=== PATIENT | male | born 1995 | race African-American/Black ===

== ENCOUNTER 2016-06-19 17:18 | Emergency (ER) | payer OTHER ==
[2016-06-19 17:22] VITALS: BP 154/74; PULSE 81; TEMP 99.4; BMI 27.1
--- NOTE | 2016-06-19 19:28 | PDOC ---
History of Present Illness - General History Source: Patient Exam Limitations: No Limitations - History of Present Illness Initial Comments: 06/19/16 20:04 The patient is a 21-year-old male with a significant past medical history of GI bleeds (ulcers), who presents to the emergency department complaining of episodes of nausea, vomiting, diarrhea, and fever for the past day. The patient reports he present to [facility] ED earlier today, but left because of the waiting time. He states that he is unable to keep down any solids or fluids secondary to nausea. Today, he reports 5 episodes of nonbloody and nonbilious emesis today. He reports hes had more than 5 episodes of diarrhea today. He denies any associated melena, hematochezia, or constipation. He denies dysuria , frequency, urgency, and hematuria. He denies chills, cough, headache, and dizziness. The patient denies any recent travel or sick contacts. Allergies: None reported. Past Surgical History: None reported. Social History: Recreational Marijuana user. Non-smoker or ETOH consumer. <Estela Sandra - Last Filed: 06/19/16 20:04> <Myrna Severino - Last Filed: 06/19/16 22:39> - General Chief Complaint: Pain, Acute Stated Complaint: VOMITING/STOMACH ACHE Time Seen by Provider: 06/19/16 19:27 Past History <Estela Sandra - Last Filed: 06/19/16 20:04> - Past Medical History GI Disorders: Yes (Ulcers) - Psycho/Social/Smoking Cessation Hx Anxiety: No Suicidal Ideation: No Smoking History: Never smoked Have you smoked in the past 12 months: No Information on smoking cessation initiated: No Hx Alcohol Use: No Drug/Substance Use Hx: Yes (DIANELYS) Substance Use Type: Marijuana <Myrna Severino - Last Filed: 06/19/16 22:39> - Past Medical History Allergies/Adverse Reactions: Allergies Allergy/AdvReac Type Severity Reaction Status Date / Time No Known Allergies Allergy Verified 06/19/16 17:19 Home Medications: Ambulatory Orders NK [No Known Home Medication] 04/12/16 Review of Systems - Review of Systems Able to Perform ROS?: Yes Comments:: 06/19/16 20:05 GENERAL/CONSTITUTIONAL: +Fever. No chills. No weakness. HEAD, EYES, EARS, NOSE AND THROAT: No change in vision. No ear pain or discharge. No sore throat. CARDIOVASCULAR: No chest pain or shortness of breath. RESPIRATORY: No cough, wheezing, or hemoptysis. GASTROINTESTINAL: + Nausea, +vomiting, + diarrhea. No constipation. GENITOURINARY: No dysuria, frequency, or change in urination. MUSCULOSKELETAL: No joint or muscle swelling or pain. No neck or back pain. SKIN: No rash NEUROLOGIC: No headache, vertigo, loss of consciousness, or change in strength/ sensation. ENDOCRINE: No increased thirst. No abnormal weight change. HEMATOLOGIC/LYMPHATIC: No anemia, easy bleeding, or history of blood clots. ALLERGIC/IMMUNOLOGIC: No hives or skin allergy. <Estela Sandra - Last Filed: 06/19/16 20:04> *Physical Exam - Vital Signs Last Vital Signs Temp Pulse Resp BP Pulse Ox 99.4 F 81 18 154/74 100 06/19/16 17:20 06/19/16 17:20 06/19/16 17:20 06/19/16 17:20 06/19/16 17:20 - Physical Exam Comments: 06/19/16 20:05 GENERAL: Awake, alert, and fully oriented, in no acute distress HEAD: No signs of trauma EYES: PERRLA, EOMI, sclera anicteric, conjunctiva clear ENT: Auricles normal inspection, hearing grossly normal, nares patent, oropharynx clear without exudates. Moist mucosa NECK: Normal ROM, supple, no lymphadenopathy, JVD, or masses LUNGS: Breath sounds equal, clear to auscultation bilaterally. No wheezes, and no crackles HEART: Regular rate and rhythm, normal S1 and S2, no murmurs, rubs or gallops ABDOMEN: +Mild LUQ tenderness. Normoactive bowel sounds. No guarding, no rebound. No masses EXTREMITIES: Normal range of motion, no edema. No clubbing or cyanosis. No cords, erythema, or tenderness NEUROLOGICAL: Cranial nerves II through XII grossly intact. Normal speech, normal gait SKIN: Warm, Dry, normal turgor, no rashes or lesions noted. <Estela Sandra - Last Filed: 06/19/16 20:04> - Vital Signs Last Vital Signs Temp Pulse Resp BP Pulse Ox 99.4 F 81 18 154/74 100 06/19/16 17:20 06/19/16 17:20 06/19/16 17:20 06/19/16 17:20 06/19/16 17:20 <Myrna Severino - Last Filed: 06/19/16 22:39> ED Treatment Course - LABORATORY CBC & Chemistry Diagram: 06/19/16 20:16 06/19/16 20:16 <Myrna Severino - Last Filed: 06/19/16 22:39> Medical Decision Making - Medical Decision Making 06/19/16 22:38 pt comes with nausea and vomiting diarrhea and fever. Today he has no fever in the ER and he is feeling better, but he thinks he may have a stomach virus. Exam is normal, labs normal, and pt was hydrated and feeling better. He has no abdominal pain and he is feeling better. He will be discharged home. <Myrna Severino - Last Filed: 06/19/16 22:39> *DC/Admit/Observation/Transfer - Attestations Scribe Attestion: 06/19/16 20:05 Documentation prepared by Estela Sandra, acting as medical instrument technician for Myrna Severino MD. <Estela Sandra - Last Filed: 06/19/16 20:04> - Discharge Dispostion Admit: No <Myrna Severino - Last Filed: 06/19/16 22:39> Diagnosis at time of Disposition: Gastroenteritis - Discharge Dispostion Disposition: HOME Condition at time of disposition: Improved - Referrals Referrals: Juan David Camacho MD [Primary Care Provider] - - Patient Instructions Printed Discharge Instructions: Viral Gastroenteritis - Post Discharge Activity Work/School Note: Back to Work
[2016-06-19] MEDS ORDERED: SODIUM CHLORIDE 0.9% 500 ML INFUS.BAG IV ONE (19:46)
[2016-06-19] MEDS ORDERED: FAMOTIDINE 20 MG/50 ML IVPB 50 ML IVPB ONE ×2 (19:46→20:06)
[2016-06-19] MEDS ORDERED: ONDANSETRON 4 MG/2 ML VIAL IVPB ONE (19:46)
[2016-06-19] MEDS ORDERED: ONDANSETRON 4 MG/2 ML VIAL ONE (20:06)
[2016-06-19 20:25] LABS: BASOPHIL 0.2 % (0-2.0); EOSINOPHIL 0.1 % (0-4.5); MCH 29.3 pg (25.7-33.7); MCHC 32.4 g/dl (32.0-35.9); MEAN CELL VOLUME 90.4 fl (80-96); MEAN PLT VOLUME 8.6 fl (7.5-11.1); PLATELET COUNT 217 K/MM3 (134-434); RDW 13.7 % (11.9-15.9); WHITE BLOOD COUNT 6.5 K/mm3 (4.0-10.0)
[2016-06-19 20:56] LABS: ALK PHOS 57 U/L (45-117); AMYLASE 80 U/L (25-115); ANION GAP 6 (8-16); BILIRUBIN,TOTAL 0.6 mg/dL (0.2-1.0); CALCIUM 10.2 mg/dL (8.5-10.1); CO2 28 mmol/L (21-32); CREATININE 1.2 mg/dL (0.7-1.3); GLUCOSE,RANDOM 86 mg/dL (74-106); SGOT/AST 28 U/L (15-37); SGPT/ALT 68 U/L (12-78); TOT PROT 8.3 g/dl (6.4-8.2)
== END 2016-06-19 21:51 | disposition home or self-care (01) ==
LOC: JER 17:18
PROC: 3E033GC Introduction of Other Therapeutic Substance into Peripheral Vein, Percutaneous Approach (ICD-10-PCS; principal; 2016-06-19)
DX: K52.9 Noninfective gastroenteritis and colitis, unspecified (principal)
CPT/HCPCS: 36415; 80053; 82150; 83690; 85025; 96365; 96375; 99281-25

== ENCOUNTER 2016-07-05 14:05 | Emergency (ER) | payer OTHER ==
[2016-07-05 14:09] VITALS: TEMP 98.1; BMI 27.1
[2016-07-05] MEDS ORDERED: morphine CARPU-JECT 4 MG/1 ML DISP.SYRIN IVPUSH ONE (14:21)
[2016-07-05] MEDS ORDERED: morphine CARPU-JECT 4 MG/1 ML DISP.SYRIN ONE (14:25)
[2016-07-05] MEDS ORDERED: HYDROmorphone HCL CARPU-JECT 1 MG/1 ML DISP.SYRIN IVPB ONE ×2 (14:32→15:13)
--- NOTE | 2016-07-05 14:35 | PDOC ---
History of Present Illness - History of Present Illness Initial Comments: 07/05/16 14:42 The patient is a 21 year old male with history of previous right shoulder dislocation who presents to the ED complaining of right shoulder pain and deformity. The patient reports he was playing basketball today grabbed the rim and pulled and twisted his right shoulder at the onset of his pain. No numbness , tingling, or focal weakness. No head injury. No other injury. <Emiliana Lucio - Last Filed: 07/05/16 15:27> - General History Source: Patient Exam Limitations: No Limitations <Abhi Caban - Last Filed: 07/05/16 16:59> <Rosa Jay - Last Filed: 07/05/16 18:11> - General Chief Complaint: Injury Stated Complaint: DISLOCATED RT SHOULDER Time Seen by Provider: 07/05/16 14:21 Past History <Emiliana Lucio - Last Filed: 07/05/16 15:27> - Past Medical History GI Disorders: Yes (Ulcers) Other medical history: DISLOCATED R SHOULDER. - Psycho/Social/Smoking Cessation Hx Anxiety: No Suicidal Ideation: No Smoking History: Never smoked Have you smoked in the past 12 months: No Hx Alcohol Use: No Drug/Substance Use Hx: No Substance Use Type: Marijuana <Abhi Caban - Last Filed: 07/05/16 16:59> <Rosa Jay - Last Filed: 07/05/16 18:11> - Past Medical History Allergies/Adverse Reactions: Allergies Allergy/AdvReac Type Severity Reaction Status Date / Time No Known Allergies Allergy Verified 07/05/16 14:09 Home Medications: Ambulatory Orders NK [No Known Home Medication] 07/05/16 Naproxen [Naprosyn -] 500 mg PO BID PRN #20 tablet 07/05/16 Oxycodone HCl/Acetaminophen [Percocet 5-325 mg Tablet] 1 tab PO Q6H PRN #15 tablet MDD 4 07/05/16 Review of Systems - Review of Systems Able to Perform ROS?: Yes Comments:: 07/05/16 14:43 GENERAL/CONSTITUTIONAL: No fever or chills. No weakness. HEAD, EYES, EARS, NOSE AND THROAT: No change in vision. No ear pain or discharge. No sore throat. CARDIOVASCULAR: No chest pain or shortness of breath. RESPIRATORY: No cough, wheezing, or hemoptysis. GASTROINTESTINAL: No nausea, vomiting, diarrhea or constipation. GENITOURINARY: No dysuria, frequency, or change in urination. MUSCULOSKELETAL: Right shoulder pain and deformity. No neck or back pain. SKIN: No rash NEUROLOGIC: No headache, vertigo, loss of consciousness, or change in strength/ sensation. ENDOCRINE: No increased thirst. No abnormal weight change. HEMATOLOGIC/LYMPHATIC: No anemia, easy bleeding, or history of blood clots. ALLERGIC/IMMUNOLOGIC: No hives or skin allergy. <Emiliana Lucio - Last Filed: 07/05/16 15:27> *Physical Exam - Vital Signs Last Vital Signs Temp Pulse Resp BP Pulse Ox 98.1 F 99 H 20 149/83 96 07/05/16 14:06 07/05/16 14:06 07/05/16 14:06 07/05/16 14:06 07/05/16 14:06 - Physical Exam Comments: 07/05/16 14:36 GENERAL: Awake, alert, and fully oriented, uncomfortable appearing. HEAD: No signs of trauma EYES: PERRLA, EOMI, sclera anicteric, conjunctiva clear ENT: Auricles normal inspection, hearing grossly normal, nares patent, oropharynx clear without exudates. Moist mucosa NECK: Normal ROM, supple, no lymphadenopathy, JVD, or masses LUNGS: Breath sounds equal, clear to auscultation bilaterally. No wheezes, and no crackles HEART: Regular rate and rhythm, normal S1 and S2, no murmurs, rubs or gallops ABDOMEN: Soft, nontender, normoactive bowel sounds. No guarding, no rebound. No masses EXTREMITIES: RUE: 2+ radial pulses, medial, radian, ulnar, and deltoid intact, anterior dislocation of the shoulder with anterior tenderness to palpation. No tenderness at the fingers, wrist, or elbow. All other extremities: Normal range of motion, no edema. No clubbing or cyanosis. No cords, erythema, or tenderness NEUROLOGICAL: Cranial nerves II through XII grossly intact. Normal speech, normal gait SKIN: Warm, Dry, normal turgor, no rashes or lesions noted. <Emiliana Lucio - Last Filed: 07/05/16 15:27> - Vital Signs Last Vital Signs Temp Pulse Resp BP Pulse Ox 98.1 F 99 H 20 149/83 96 07/05/16 14:06 07/05/16 14:06 07/05/16 14:06 07/05/16 14:06 07/05/16 14:06 <Abhi Caban - Last Filed: 07/05/16 16:59> - Vital Signs Last Vital Signs Temp Pulse Resp BP Pulse Ox 98.1 F 77 18 144/81 98 07/05/16 14:06 07/05/16 17:28 07/05/16 17:28 07/05/16 17:28 07/05/16 17:28 <Rosa Jay - Last Filed: 07/05/16 18:11> Procedures - Consent Consent obtained: Written, From Patient - Joint Reduction Right Joint Reduction Site: right: Shoulder Pre-Procedure NV Exam: normal Conscious Sedation: Yes (100 mg ketamine, 2 mg IV versed. ) Reduction Attempts: 1 Procedure: Traction Counter Traction Post-Procedure NV Exam: normal Complications: No Splint: No Immobilized: Yes Progress: 07/05/16 16:33 Pending a repeat shoulder xray. <Abhi Caban - Last Filed: 07/05/16 16:59> ED Treatment Course - Medications Given in the ED: ED Medications Discontinued Medications Generic Name Dose Route Start Last Admin Trade Name Freq PRN Reason Stop Dose Admin Morphine Sulfate 4 mg 07/05/16 14:21 07/05/16 14:27 Morphine Injection - IVPUSH 07/05/16 14:22 4 mg ONCE ONE Administration <Emiliana Lucio - Last Filed: 07/05/16 15:27> - RADIOLOGY Radiology Studies Ordered: Category Date Time Status SHOULDER-RIGHT [RAD] Stat Radiology 07/05/16 14:22 Ordered - Medications Given in the ED: ED Medications Discontinued Medications Generic Name Dose Route Start Last Admin Trade Name Freq PRN Reason Stop Dose Admin Morphine Sulfate 4 mg 07/05/16 14:21 07/05/16 14:27 Morphine Injection - IVPUSH 07/05/16 14:22 4 mg ONCE ONE Administration <Abhi Caban - Last Filed: 07/05/16 16:59> - Medications Given in the ED: ED Medications Discontinued Medications Generic Name Dose Route Start Last Admin Trade Name Freq PRN Reason Stop Dose Admin Hydromorphone HCl 1 mg 07/05/16 14:32 07/05/16 14:35 Dilaudid Injection - IVPB 07/05/16 14:33 1 mg ONCE ONE Administration Hydromorphone HCl 0.5 mg 07/05/16 15:13 07/05/16 15:25 Dilaudid Injection - IVPB 07/05/16 15:14 0.5 mg ONCE ONE Administration Ketamine HCl 100 mg 07/05/16 15:20 07/05/16 15:45 Ketalar - IV 07/05/16 15:21 100 mg ONCE ONE Administration Midazolam HCl 2 mg 07/05/16 15:20 07/05/16 15:43 Versed - IVPUSH 07/05/16 15:21 2 mg ONCE ONE Administration Morphine Sulfate 4 mg 07/05/16 14:21 07/05/16 14:27 Morphine Injection - IVPUSH 07/05/16 14:22 4 mg ONCE ONE Administration <Rosa Jay - Last Filed: 07/05/16 18:11> Medical Decision Making - Medical Decision Making 07/05/16 15:27 Right shoulder x-ray, reviewed and interpreted by Dr. Nowak, reveals a right humerus anterior dislocation with no evidence of acute fracture. <Emiliana Lucio - Last Filed: 07/05/16 15:27> - Medical Decision Making 07/05/16 14:34 A portion of this note was documented by scribe services under my direction. I have reviewed the details of the note, within reason, and agree with the documentation with the following case summary and management plan written by me. Patient treated in the ED. Nursing notes are reviewed and incorporated into the medical decision-making. Vital signs reviewed. Peripheral IV access obtained by the nurse, laboratory studies are drawn and sent, reviewed and interpreted by myself. Vital Signs Temp Pulse Resp BP Pulse Ox 98.1 F 99 H 20 149/83 96 07/05/16 14:06 07/05/16 14:06 07/05/16 14:06 07/05/16 14:06 07/05/16 14:06 21-year-old male with past medical history of prior shoulder dislocation presents with right shoulder pain. The patient was playing basketball and was going for a rebound and pulled on the rim of the basket when he felt his right shoulder twist and pop. Denies any numbness or weakness. Reports significant pain. We'll need to rule out shoulder dislocation. He is neurovascular intact at this time. X-ray and reassess. Pain control. 07/05/16 16:33 R shoulder xray demonstrates no acute fractures. Shows right anterior shoulder dislocation. After lengthy discussion, the patient agrees to moderate sedation. Risks and benefits were discussed including risk of respiratory depression. Crash cart was placed at bedside and patient placed on air sampling and monitoring and IV, O2. The patient consents for moderate sedation and shoulder reduction. Mallampatti II. With another ED attending presents, Dr. Moore, 100 mg of IV ketamine and 2 g IV Versed were given with excellent moderate sedation. With traction and countertraction, shoulder reduction was attempted once with a palpable click. Patient remains neurovascular intact post seizure. Patient was placed in a right shoulder splint. Friend is at bedside who can take patient home once he awakens. He continues to breathe comfortably without any vital sign on room abnormalities. If the repeat right shoulder x-ray done shows no acute finding is , we'll discharge patient with orthopedics follow-up. 07/05/16 16:51 Repeat shoulder xray on my review, pending official radiology review. Successful reduction of right shoulder. Will allow the patient to wake up and allow him to go home with the friend. <Abhi Caban - Last Filed: 07/05/16 16:59> *DC/Admit/Observation/Transfer - Attestations Scribe Attestion: 07/05/16 14:37 Documentation prepared by Emiliana Lucio, acting as director of medical services for Abhi Caban MD. <Emiliana Lucio - Last Filed: 07/05/16 15:27> - Discharge Dispostion Admit: No <Abhi Caban - Last Filed: 07/05/16 16:59> <Rosa Jay - Last Filed: 07/05/16 18:11> Diagnosis at time of Disposition: Shoulder dislocation Qualifiers: Encounter type: initial encounter Laterality: right Qualified Code(s): S43.004A - Unspecified dislocation of right shoulder joint, initial encounter - Discharge Dispostion Disposition: HOME Condition at time of disposition: Stable - Prescriptions Prescriptions: Naproxen [Naprosyn -] 500 mg PO BID PRN #20 tablet PRN Reason: Pain Level 1-5 Oxycodone HCl/Acetaminophen [Percocet 5-325 mg Tablet] 1 tab PO Q6H PRN #15 tablet MDD 4 PRN Reason: Pain Level 6-10 - Referrals Referrals: Juan David Camacho MD [Primary Care Provider] - Desmond Vidal MD [Staff Physician] - - Patient Instructions Printed Discharge Instructions: DI for Shoulder Dislocation Additional Instructions: Your shoulder was dislocated and a reduction was made. At this time, please keep your shoulder in the sling for the next day. However, from time to time, allow your shoulder to dangle by gravity, to prevent frozen shoulder, and then place the arm in the sling. Do not product picker any heavy objects or engage in physical activity until you are cleared by orthopedics. Call and schedule an appointment for the next several days. You may take 500 mg naproxen every 12 hours as needed for pain. For additional relief, you may take a tablet of percocet every 6 hours as needed for pain. Please do not drink or drive while on this medication as this medication may make you drowsy. [facility].
[2016-07-05] MEDS ORDERED: MIDAZOLAM HCL 2 MG/2 ML SINGLE DOSE VIAL IVPUSH ONE (15:20)
[2016-07-05] MEDS ORDERED: KETAMINE HCL 500 MG/10 ML VIAL IV ONE (15:20)
[2016-07-05] MEDS ORDERED: KETAMINE HCL 200 MG/20 ML VIAL ONE (15:24)
[2016-07-05] MEDS ORDERED: HYDROmorphone HCL CARPU-JECT 1 MG/1 ML DISP.SYRIN ONE (15:24)
[2016-07-05] MEDS ORDERED: MIDAZOLAM HCL 2 MG/2 ML SINGLE DOSE VIAL ONE (15:24)
[2016-07-05 17:28] VITALS: BP 144/81; PULSE 77
== END 2016-07-05 17:50 | disposition home or self-care (01) ==
LOC: JER 14:05
PROC: 0RSJXZZ Reposition Right Shoulder Joint, External Approach (ICD-10-PCS; principal; 2016-07-05)
PROC: 3E033NZ Introduction of Analgesics, Hypnotics, Sedatives into Peripheral Vein, Percutaneous Approach (ICD-10-PCS; 2016-07-05)
DX: M24.411 Recurrent dislocation, right shoulder (principal); X50.1XXA Overexertion from prolonged static or awkward postures, initial encounter; Y93.67 Activity, basketball; Y92.310 Basketball court as the place of occurrence of the external cause; Y99.8 Other external cause status
CPT/HCPCS: 23655; 73030-TC-RT; 96374; 96375; 99283-25

== ENCOUNTER 2017-03-14 22:22 | Emergency (ER) | payer OTHER ==
--- NOTE | 2017-03-14 22:35 | PDOC ---
History of Present Illness - General Stated Complaint: RIGHT KNEE PAIN Time Seen by Provider: 03/14/17 22:27 - History of Present Illness Initial Comments: 21 year old male with PMH of PUD (resolved) and one traumatic knee dislocation 4-5 years ago while playing sports presenting with non traumatic pain in the right knee while lying in bed. He states that he was simply laying in bed and twisted his body to the left then felt some pain in his right knee with inability to flex more than 4-5 degrees. Unable to bear weight secondary to pain as well. Denies any numbness, tingling or parasthesia. He does admit to some marijuana use after work today prior to the incident. 03/14/17 22:37 Past History - Past Medical History Allergies/Adverse Reactions: Allergies Allergy/AdvReac Type Severity Reaction Status Date / Time No Known Allergies Allergy Verified 03/14/17 23:12 Home Medications: Ambulatory Orders NK [No Known Home Medication] 07/05/16 Naproxen [Naprosyn -] 500 mg PO BID PRN #20 tablet 03/15/17 GI Disorders: Yes (Ulcers) - Suicide/Smoking/Psychosocial Hx Smoking History: Never smoked Have you smoked in the past 12 months: No Hx Alcohol Use: No Drug/Substance Use Hx: No Substance Use Type: Marijuana Review of Systems - Review of Systems Constitutional: No: Diaphoresis, Fever HEENTM: No: Double Vision Respiratory: No: Cough, Shortness of Breath Cardiac (ROS): No: Chest Pain, Edema, Irregular Heart Rate ABD/GI: No: Diarrhea, Nausea, Vomiting Musculoskeletal: Yes: Joint Pain Integumentary: No: Bruising, Change in Color, Lesions *Physical Exam - Physical Exam General Appearance: Yes: Nourished, Appropriately Dressed. No: Apparent Distress HEENT: positive: EOMI, DEIDRE, Normal Voice Neck: positive: Trachea midline, Normal Thyroid, Supple. negative: Tender, Rigid Respiratory/Chest: positive: Lungs Clear, Normal Breath Sounds. negative: Chest Tender, Respiratory Distress Cardiovascular: positive: Regular Rhythm, Regular Rate, S1, S2. negative: Edema , JVD, Murmur Gastrointestinal/Abdominal: positive: Normal Bowel Sounds, Flat, Soft. negative : Tender Musculoskeletal: negative: Normal Inspection (Right knee tender to palpation on lateral edge with knee apparently displaced from normal location compared with left knee. unable to flex knee past 4-5 degrees secondayr to pain.) Extremity: positive: Tender. negative: Normal Inspection, Normal Range of Motion Integumentary: positive: Normal Color, Dry, Warm Neurologic: positive: Fully Oriented, Alert, Normal Mood/Affect Medical Decision Making - Medical Decision Making 21 year old male with non traumatic right knee pain. Most concerning for dislocation. Will give patient one percocet get 2 view of right knee, then reduce and shoot post reduction film. 03/14/17 22:46 2 view of the knee does not show obvious dislocation so will apply some ice, place in knee immobilizer, and send for ortho follow up. 03/14/17 23:54 Patient feeling slightly better after 30 toradol IM. 03/15/17 00:27 *DC/Admit/Observation/Transfer Diagnosis at time of Disposition: Right knee pain - Discharge Dispostion Disposition: HOME Condition at time of disposition: Improved Admit: No - Prescriptions Prescriptions: Naproxen [Naprosyn -] 500 mg PO BID PRN #20 tablet PRN Reason: Pain Level 1-5 - Referrals Referrals: Juan David Camacho MD [Primary Care Provider] - Desmond Vidal MD [Staff Physician] - - Patient Instructions Printed Discharge Instructions: How to Use a Knee Immobilizer Additional Instructions: Please wear the knee immobilizer until you are able to see the orthopedic physician. We did not see any break or dislocation on your knee films. Please use the naprosyn for pain.
[2017-03-14 23:37] VITALS: BP 132/62; PULSE 77; TEMP 98.6; BMI 26.4
[2017-03-14] MEDS ORDERED: KETOROLAC TROMETHAMINE 30 MG/1 ML VIAL IM ONE (23:46)
[2017-03-15] MEDS ORDERED: KETOROLAC TROMETHAMINE 60 MG/2 ML VIAL ONE (00:05)
== END 2017-03-15 00:58 | disposition home or self-care (01) ==
LOC: JER 22:22
PROC: 3E0233Z Introduction of Anti-inflammatory into Muscle, Percutaneous Approach (ICD-10-PCS; principal; 2017-03-14)
DX: M25.561 Pain in right knee (principal)
CPT/HCPCS: 73560-TC-RT; 99281-25

== ENCOUNTER 2017-09-14 10:42 | Emergency (ER) | payer OTHER ==
[2017-09-14 10:47] VITALS: BP 125/57; PULSE 62; TEMP 98.5; BMI 23.0
[2017-09-14] MEDS ORDERED: ACETAMINOPHEN 325 MG TABLET (FP) PO ONE (12:21)
[2017-09-14] MEDS ORDERED: ACETAMINOPHEN 325 MG TABLET (FP) ONE (12:23)
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
== END 2017-09-14 13:33 | disposition home or self-care (01) ==
LOC: JERFT 10:42
DX: S43.401A Unspecified sprain of right shoulder joint, initial encounter (principal); V19.88XA Pedal cyclist (driver) (passenger) injured in other specified transport accidents, initial encounter; Y92.410 Unspecified street and highway as the place of occurrence of the external cause; Y93.55 Activity, bike riding; Y99.8 Other external cause status
CPT/HCPCS: 73030-TC-RT-FY; 99281-25

== ENCOUNTER 2018-05-24 21:34 | Emergency (ER) | payer SELFPAY ==
[2018-05-24 21:41] VITALS: BP 134/60; PULSE 79; TEMP 98.2; BMI 25.0
--- NOTE | 2018-05-24 21:43 | PDOC ---
Rapid Medical Evaluation Chief Complaint: Pain, Acute Medical Evaluation: Allergies Allergy/AdvReac Type Severity Reaction Status Date / Time ibuprofen [From Motrin] Allergy Verified 09/14/17 10:46 05/24/18 21:38 I have performed a brief in-person evaluation of this patient. The patient presents with a chief complaint of:abd pain / gastric Pertinent physical exam findings: abd soft/ no rebound or guarding butr is tender in epigastrum I have ordered the following: nothing The patient will proceed to the ED for further evaluation. Discharge Disposition - Diagnosis Stomach ache - Referrals Referrals: Susan Cardona MD [Primary Care Provider] - - Patient Instructions - Post Discharge Activity
[2018-05-25] MEDS ORDERED: MAG HYDROX/AL HYDROX/SIMETH 30 ML UNIT-DOSE CUP PO ONE (00:17)
--- NOTE | 2018-05-25 00:18 | PDOC ---
History of Present Illness - History of Present Illness Initial Comments: 05/25/18 00:33 The patient is a 23 year old male, with a significant past medical history of, who presents to the emergency department for evaluation of diarrhea all day with associated epigastric discomfort and nausea. He denies vomiting. He brett pain radiation. He reports a sick family contact with similar symptoms. Cramping , The patient denies chest pain, shortness of breath, headache and dizziness. The patient denies fever, chills, vomit, and constipation. The patient denies dysuria, frequency, urgency and hematuria. Allergies: ibuprofen, NSAIDS <Mirna Arizmendi - Last Filed: 05/25/18 00:32> <Rosa Jay - Last Filed: 05/25/18 02:25> - General Chief Complaint: Pain, Acute Stated Complaint: ABD PAIN Time Seen by Provider: 05/24/18 23:01 Past History <Mirna Arizmendi - Last Filed: 05/25/18 00:32> - Past Medical History COPD: No GI Disorders: Yes (Ulcers) - Suicide/Smoking/Psychosocial Hx Smoking History: Current every day smoker Have you smoked in the past 12 months: No Information on smoking cessation initiated: No Hx Alcohol Use: No Drug/Substance Use Hx: Yes (MARIJUANA) Substance Use Type: None, Marijuana <Rosa Jay - Last Filed: 05/25/18 02:25> - Past Medical History Allergies/Adverse Reactions: Allergies Allergy/AdvReac Type Severity Reaction Status Date / Time ibuprofen [From Motrin] Allergy Verified 05/24/18 21:42 NSAIDS (Non-Steroidal Allergy Verified 05/24/18 21:42 Anti-Inflamma Home Medications: Ambulatory Orders Pantoprazole Sodium [Protonix -] 20 mg PO DAILY #7 tablet.ec 05/25/18 Review of Systems - Review of Systems Able to Perform ROS?: Yes Comments:: 05/25/18 00:34 CONSTITUTIONAL: Absent: fever, chills, diaphoresis, generalized weakness, malaise, loss of appetite HEENT: Absent: rhinorrhea, nasal congestion, throat pain, throat swelling, difficulty swallowing, mouth swelling, ear pain, eye pain, visual Changes CARDIOVASCULAR: Absent: chest pain, syncope, palpitations, irregular heart rate, lightheadedness , peripheral edema RESPIRATORY: Absent: cough, shortness of breath, dyspnea with exertion, orthopnea, wheezing, stridor, hemoptysis GASTROINTESTINAL: (+) abdominal pain, nausea,diarrhea, Absent:abdominal distension, vomiting, constipation, melena, hematochezia GENITOURINARY: Absent: dysuria, frequency, urgency, hesitancy, hematuria, flank pain, genital pain MUSCULOSKELETAL: Absent: myalgia, arthralgia, joint swelling SKIN: Absent: rash, itching, pallor HEMATOLOGIC/IMMUNOLOGIC: Absent: easy bleeding, easy bruising, lymphadenopathy, frequent infections ENDOCRINE: Absent: unexplained weight gain, unexplained weight loss, heat intolerance, cold intolerance NEUROLOGIC: Absent: headache, focal weakness or paresthesias, dizziness, unsteady gait, seizure, mental status changes, bladder or bowel incontinence PSYCHIATRIC: Absent: anxiety, depression, suicidal or homicidal ideation, hallucinations. <Mirna Arizmendi - Last Filed: 05/25/18 00:32> *Physical Exam - Vital Signs Last Vital Signs Temp Pulse Resp BP Pulse Ox 98.2 F 79 16 134/60 100 05/24/18 21:38 05/24/18 21:38 05/24/18 21:38 05/24/18 21:38 05/24/18 21:38 - Physical Exam Comments: 05/25/18 00:34 GENERAL: Well developed, well nourished. Awake and alert. No acute distress. HEENT: Normocephalic, atraumatic. PERRLA, EOMI. No conjunctival pallor. Sclera are non- icteric. Moist mucous membranes. Oropharynx is clear. NECK: Supple. Full ROM. No JVD. Carotid pulses 2+ and symmetric, without bruits. No thyromegaly. No lymphadenopathy. CARDIOVASCULAR: Regular rate and rhythm. No murmurs, rubs, or gallops. Distal pulses are 2+ and symmetric. PULMONARY: No evidence of respiratory distress. Lungs clear to auscultation bilaterally. No wheezing, rales or rhonchi. ABDOMINAL: (+). Epigastric tenderness to deep palpation. Soft. Non-distended. No rebound or guarding. No organomegaly. Normoactive bowel sounds. MUSCULOSKELETAL Normal range of motion at all joints. No bony deformities or tenderness. No CVA tenderness. EXTREMITIES: No cyanosis. No clubbing. No edema. No calf tenderness. SKIN: Warm and dry. Normal capillary refill. No rashes. No jaundice. NEUROLOGICAL: Alert, awake, appropriate. Cranial nerves 2-12 intact. Normoreflexic in the upper and lower extremities. Normal speech. Toes are down-going bilaterally. Gait is normal without ataxia. PSYCHIATRIC: Cooperative. Good eye contact. Appropriate mood and affect. <Mirna Arizmendi - Last Filed: 05/25/18 00:32> - Vital Signs Last Vital Signs Temp Pulse Resp BP Pulse Ox 98.2 F 79 16 134/60 100 05/24/18 21:38 05/24/18 21:38 05/24/18 21:38 05/24/18 21:38 05/24/18 21:38 <Rosa Jay - Last Filed: 05/25/18 02:25> Moderate Sedation - Procedure Monitoring Vital Signs: Procedure Monitoring Vital Signs Temperature 98.2 F 05/24/18 21:38 Pulse Rate 79 05/24/18 21:38 Respiratory Rate 16 05/24/18 21:38 Blood Pressure 134/60 05/24/18 21:38 O2 Sat by Pulse Oximetry (%) 100 05/24/18 21:38 <Mirna Arizmendi - Last Filed: 05/25/18 00:32> - Procedure Monitoring Vital Signs: Procedure Monitoring Vital Signs Temperature 98.2 F 05/24/18 21:38 Pulse Rate 79 05/24/18 21:38 Respiratory Rate 16 05/24/18 21:38 Blood Pressure 134/60 05/24/18 21:38 O2 Sat by Pulse Oximetry (%) 100 05/24/18 21:38 <Rosa Jay - Last Filed: 05/25/18 02:25> ED Treatment Course - LABORATORY CBC & Chemistry Diagram: 05/25/18 00:40 05/25/18 00:40 <Rosa Jay - Last Filed: 05/25/18 02:25> Medical Decision Making - Medical Decision Making 05/25/18 02:20 23 yo male denies any significant PMH p/w some loose stools and epigastric discomfort. He has some nausea but no vomiting and no chills or fever -his niece is currently having a "GI" bug -he has a benign abd exam labs reviewed and there were wnl except for slight bump in lft pt sleeping during observation period pt given RX protonix and discharged <Rosa Jay - Last Filed: 05/25/18 02:25> *DC/Admit/Observation/Transfer - Attestations Scribe Attestion: 05/25/18 00:34 Documentation prepared by Mirna Arizmendi, acting as durable medical equipment technician for Rosa Jay MD <Mirna Arizmendi - Last Filed: 05/25/18 00:32> <Rosa Jay - Last Filed: 05/25/18 02:25> Diagnosis at time of Disposition: Stomach ache, Epigastric abdominal pain Diarrhea Qualifiers: Diarrhea type: functional diarrhea Qualified Code(s): K59.1 - Functional diarrhea - Discharge Dispostion Disposition: HOME Condition at time of disposition: Stable - Prescriptions Prescriptions: Pantoprazole Sodium [Protonix -] 20 mg PO DAILY #7 tablet.ec - Referrals Referrals: Susan Cardona MD [Primary Care Provider] - - Patient Instructions Printed Discharge Instructions: DI for Diarrhea and Traveler's Diarrhea -- Adult, DI for Epigastric Pain Additional Instructions: please take your protonix as directed follow up with your regular physican Return for any worsening symptoms - Post Discharge Activity
[2018-05-25] MEDS ORDERED: MAG HYDROX/AL HYDROX/SIMETH 30 ML UNIT-DOSE CUP ONE (00:35)
[2018-05-25 00:52] LABS: BASO % 0.5 % (0-2.0); EOS % 2.3 % (0-4.5); HEMATOCRIT 37.8 % (35.4-49); HEMOGLOBIN 13.1 GM/dL (11.7-16.9); LYMPH % 11.8 % (8-40); MCH 31.8 pg (25.7-33.7); MCHC 34.6 g/dl (32.0-35.9); MEAN CELL VOLUME 91.9 fl (80-96); MEAN PLT VOLUME 8.1 fl (7.5-11.1); MONO % 7.8 % (3.8-10.2); NEUT % 77.6 % (42.8-82.8); PLATELET COUNT 216 K/MM3 (134-434); RBC 4.11 M/mm3 (4.00-5.60); RDW 14.1 % (11.9-15.9); WHITE BLOOD COUNT 4.8 K/mm3 (4.0-10.0)
[2018-05-25 01:14] LABS: ALBUMIN 3.6 g/dl (3.4-5.0); ALK PHOS 68 U/L (45-117); ANION GAP 4 MMOL/L (8-16); BILIRUBIN,TOTAL 0.3 mg/dL (0.2-1); BLOOD UREA NITROGEN 13 mg/dL (7-18); CALCIUM 8.7 mg/dL (8.5-10.1); CHLORIDE 105 mmol/L (98-107); CO2 29 mmol/L (21-32); GLUCOSE,RANDOM 109 mg/dL (74-106); POTASSIUM 4.3 mmol/L (3.5-5.1); SGOT/AST 42 U/L (15-37); SGPT/ALT 72 U/L (13-61); SODIUM 138 mmol/L (136-145); TOT PROT 6.8 g/dl (6.4-8.2)
[2018-05-25] MEDS ORDERED: LOPERAMIDE HCL 2 MG CAPSULE PO ONE (02:09)
[2018-05-25] MEDS ORDERED: LOPERAMIDE HCL 2 MG CAPSULE ONE (02:10)
== END 2018-05-25 02:33 | disposition home or self-care (01) ==
LOC: JER 21:34
DX: K59.1 Functional diarrhea (principal)
CPT/HCPCS: 36415; 80053; 83690; 85025; 99281-25; 99282-25

== ENCOUNTER 2018-09-06 10:16 | Emergency (ER) | payer SELFPAY ==
[2018-09-06 10:21] VITALS: BP 147/81; PULSE 90; TEMP 98.6; BMI 66.6
[2018-09-06 10:52] LABS: URINE APPEARANCE CLOUDY; URINE BILIRUBIN NEGATIVE (NEGATIVE); URINE COLOR YELLOW; URINE GLUCOSE (UA) NEGATIVE (NEGATIVE); URINE KETONE NEGATIVE (NEGATIVE); URINE LEUK ESTERASE NEGATIVE (NEGATIVE); URINE NITRITE NEGATIVE (NEGATIVE); URINE PROTEIN NEGATIVE (NEGATIVE); URINE UROBILINOGEN 0.2 mg/dL (0.2-1.0)
--- NOTE | 2018-09-06 11:50 | PDOC ---
History of Present Illness - General Chief Complaint: Pain Stated Complaint: RT LOWER BACK PAIN Time Seen by Provider: 09/06/18 10:41 History Source: Patient - History of Present Illness Timing/Duration: reports: intermittent Abdominal Pain Onset Location: reports: flank Past History - Past Medical History Allergies/Adverse Reactions: Allergies Allergy/AdvReac Type Severity Reaction Status Date / Time ibuprofen [From Motrin] Allergy Verified 09/06/18 10:18 NSAIDS (Non-Steroidal Allergy Verified 09/06/18 10:18 Anti-Inflamma Home Medications: Ambulatory Orders Pantoprazole Sodium [Protonix -] 20 mg PO DAILY #7 tablet.ec 05/25/18 COPD: No GI Disorders: Yes (Ulcers) - Suicide/Smoking/Psychosocial Hx Smoking History: Unknown if ever smoked Have you smoked in the past 12 months: No Hx Alcohol Use: No Drug/Substance Use Hx: Yes (MARIJUANA) Substance Use Type: None, Marijuana Review of Systems - Review of Systems Constitutional: No: Chills, Fever ABD/GI: No: Diarrhea, Nausea, Vomiting, Abdominal cramping : Yes: Flank Pain. No: Burning, Dysuria, Hematuria Musculoskeletal: Yes: Back Pain *Physical Exam - Vital Signs Last Vital Signs Temp Pulse Resp BP Pulse Ox 98.6 F 90 17 147/81 100 09/06/18 10:17 09/06/18 10:17 09/06/18 10:17 09/06/18 10:17 09/06/18 10:17 - Physical Exam General Appearance: Yes: Appropriately Dressed. No: Apparent Distress HEENT: positive: Normal Voice Neck: positive: Supple Respiratory/Chest: negative: Respiratory Distress Gastrointestinal/Abdominal: positive: Soft. negative: Tender Musculoskeletal: negative: CVA Tenderness Integumentary: positive: Dry, Warm Neurologic: positive: Fully Oriented, Alert, Normal Mood/Affect ED Treatment Course - LABORATORY CBC & Chemistry Diagram: 09/06/18 12:15 09/06/18 11:52 - ADDITIONAL ORDERS Additional order review: Laboratory Results 09/06/18 10:25 Urine Color Yellow Urine Appearance Cloudy Urine pH 6.0 Ur Specific [place] 1.010 Urine Protein Negative Urine Glucose (UA) Negative Urine Ketones Negative Urine Blood Negative Urine Nitrite Negative Urine Bilirubin Negative Urine Urobilinogen 0.2 Ur Leukocyte Esterase Negative Medical Decision Making - Medical Decision Making 09/06/18 11:48 23-year-old male, history of PUD several years ago that was treated, here with R mid back pain 1 week, intermittent and worse with certain movements and laying on his right side. Denies any recent trauma or other obvious inciting factors. Did not take anything for pain. Denies nausea, vomiting, dysuria, hematuria, abdominal pain, fever or chills. No history of kidney stones See exam R flank pain Possibly MSK pain, unlikely renal colic or uti/pyelo Stable w/ possibly reproducibly pain on exam -pain control -labs -CT 09/06/18 13:[address] unremarkable. Pain improved w/ tylenol. Stable for discharge w/ OTC pain control and PMD follow up at needed *DC/Admit/Observation/Transfer Diagnosis at time of Disposition: Flank pain - Discharge Dispostion Disposition: HOME Condition at time of disposition: Improved - Referrals - Patient Instructions Printed Discharge Instructions: DI for Low Back Pain Additional Instructions: Your labs and CT were normal today. Your pain might be muscular. Take Tylenol or Motrin as needed for pain. If pain persists, please follow-up with your PMD - Post Discharge Activity Forms/Work/School Notes: Back to Work
[2018-09-06] MEDS ORDERED: KETOROLAC TROMETHAMINE 60 MG/2 ML VIAL IM ONE (11:56)
[2018-09-06] MEDS ORDERED: ACETAMINOPHEN 325 MG TABLET (FP) PO ONE (11:57)
--- NOTE | 2018-09-06 12:03 | PDOC ---
*Physical Exam - Vital Signs Last Vital Signs Temp Pulse Resp BP Pulse Ox 98.6 F 90 17 147/81 100 09/06/18 10:17 09/06/18 10:17 09/06/18 10:17 09/06/18 10:17 09/06/18 10:17 ED Treatment Course - LABORATORY CBC & Chemistry Diagram: 09/06/18 12:15 09/06/18 11:52 - ADDITIONAL ORDERS Additional order review: Laboratory Results 09/06/18 10:25 Urine Color Yellow Urine Appearance Cloudy Urine pH 6.0 Ur Specific [place] 1.010 Urine Protein Negative Urine Glucose (UA) Negative Urine Ketones Negative Urine Blood Negative Urine Nitrite Negative Urine Bilirubin Negative Urine Urobilinogen 0.2 Ur Leukocyte Esterase Negative Medical Decision Making - Medical Decision Making 09/06/18 12:03 Pt seen by Midlevel Provider under my direct supervision Ancillary studies reviewed I agree with plan as outlined by Midlevel Provider *DC/Admit/Observation/Transfer Diagnosis at time of Disposition: Flank pain - Discharge Dispostion Disposition: HOME Condition at time of disposition: Improved - Referrals - Patient Instructions Printed Discharge Instructions: DI for Low Back Pain Additional Instructions: Your labs and CT were normal today. Your pain might be muscular. Take Tylenol or Motrin as needed for pain. If pain persists, please follow-up with your PMD - Post Discharge Activity Forms/Work/School Notes: Back to Work
[2018-09-06] MEDS ORDERED: KETOROLAC TROMETHAMINE 60 MG/2 ML VIAL ONE (12:18)
[2018-09-06] MEDS ORDERED: ACETAMINOPHEN 325 MG TABLET (FP) ONE (12:18)
[2018-09-06 12:26] LABS: BASO % 0.6 % (0-2.0); EOS % 1.9 % (0-4.5); HEMATOCRIT 43.1 % (35.4-49); HEMOGLOBIN 14.5 GM/dL (11.7-16.9); LYMPH % 34.5 % (8-40); MCH 30.4 pg (25.7-33.7); MCHC 33.6 g/dl (32.0-35.9); MEAN CELL VOLUME 90.5 fl (80-96); MEAN PLT VOLUME 8.3 fl (7.5-11.1); MONO % 8.7 % (3.8-10.2); NEUT % 54.3 % (42.8-82.8); PLATELET COUNT 228 K/MM3 (134-434); RBC 4.76 M/mm3 (4.00-5.60); RDW 13.7 % (11.9-15.9); WHITE BLOOD COUNT 3.7 K/mm3 (4.0-10.0)
[2018-09-06 12:58] LABS: ALBUMIN 4.2 g/dl (3.4-5.0); ALK PHOS 57 U/L (45-117); ANION GAP 5 MMOL/L (8-16); BILIRUBIN,TOTAL 0.3 mg/dL (0.2-1); BLOOD UREA NITROGEN 13 mg/dL (7-18); CALCIUM 9.8 mg/dL (8.5-10.1); CHLORIDE 104 mmol/L (98-107); CO2 28 mmol/L (21-32); GLUCOSE,RANDOM 92 mg/dL (74-106); LIPASE 339 U/L (73-393); POTASSIUM 4.5 mmol/L (3.5-5.1); SGOT/AST 48 U/L (15-37); SGPT/ALT 82 U/L (13-61); SODIUM 137 mmol/L (136-145)
== END 2018-09-06 13:39 | disposition home or self-care (01) ==
LOC: JER 10:16
PROC: 3E0233Z Introduction of Anti-inflammatory into Muscle, Percutaneous Approach (ICD-10-PCS; principal; 2018-09-06)
DX: M54.5 Low back pain (principal)
CPT/HCPCS: 36415; 74176-TC; 80053; 81003; 83690; 85025; 87086; 99282-25

== ENCOUNTER 2018-10-17 15:03 | Emergency (ER) | payer OTHER ==
[2018-10-17 15:21] VITALS: BP 143/82; PULSE 75; TEMP 98.7; BMI 30.9
[2018-10-17] MEDS ORDERED: METOCLOPRAMIDE HCL INJECTION 10 MG/2 ML VIAL IVPB ONE (15:39)
[2018-10-17] MEDS ORDERED: PANTOPRAZOLE SODIUM 40 MG in SODIUM CHLORIDE 100 ML IVPB ONE (15:39)
[2018-10-17] MEDS ORDERED: SODIUM CHLORIDE 1,000 ML IV STA (15:39)
[2018-10-17] MEDS ORDERED: morphine CARPU-JECT 2 MG/1 ML DISP.SYRIN IVPUSH ONE (15:40)
[2018-10-17] MEDS ORDERED: METOCLOPRAMIDE HCL INJECTION 10 MG/2 ML VIAL ONE (16:12)
[2018-10-17] MEDS ORDERED: MORPHINE SULFATE 2 MG/ML VIAL ONE (16:12)
[2018-10-17] MEDS ORDERED: PANTOPRAZOLE SODIUM 40 MG VIAL ONE (16:13)
--- NOTE | 2018-10-17 16:42 | PDOC ---
History of Present Illness - General Chief Complaint: Pain Stated Complaint: ABD PAIN Time Seen by Provider: 10/17/18 15:38 History Source: Patient Exam Limitations: No Limitations - History of Present Illness Travel History: No Initial Comments: 10/17/18 16:07 23-year-old male with complaints of epigastric burning associated nausea and vomiting since awakening this morning. Patient denies recent travel recent illness recent sick contacts but states did eat out last night and had ham which he states was ". Patient denies fever, chills, headache, chest pain, cough , diarrhea, constipation or urinary complaints. Patient does state he had ulcers numerous years ago and does smoke marijuana on a daily basis Timing/Duration: reports: constant Quality: reports: mild, moderate, burning, cramping, sharpness Abdominal Pain Onset Location: reports: epigastric Activities at Onset: reports: none Aggravating Factors: improves with: None Alleviating Factors: improves with: None Past History - Travel Traveled outside of the country in the last 30 days: No Close contact w/someone who was outside of country & ill: No - Past Medical History Allergies/Adverse Reactions: Allergies Allergy/AdvReac Type Severity Reaction Status Date / Time ibuprofen [From Motrin] Allergy Verified 09/06/18 10:18 NSAIDS (Non-Steroidal Allergy Verified 09/06/18 10:18 Anti-Inflamma Penicillins Allergy Verified 10/17/18 15:09 Home Medications: Ambulatory Orders Pantoprazole Sodium [Protonix -] 20 mg PO DAILY #7 tablet.ec 05/25/18 Pantoprazole Sodium [Protonix] 40 mg PO DAILY #20 tablet. 10/17/18 COPD: No GI Disorders: Yes (Ulcers) - Suicide/Smoking/Psychosocial Hx Smoking History: Current every day smoker Have you smoked in the past 12 months: No Number of Cigarettes Smoked Daily: 2 Information on smoking cessation initiated: No Hx Alcohol Use: No Drug/Substance Use Hx: Yes (marijuana) Substance Use Type: None, Marijuana Patient Lives Alone: No Lives with/in: parents Review of Systems - Review of Systems Able to Perform ROS?: Yes Constitutional: No: Symptoms Reported HEENTM: No: Symptoms Reported Respiratory: No: Symptoms reported Cardiac (ROS): No: Symptoms Reported ABD/GI: Yes: Nausea, Vomiting, Indigestion, Abdominal cramping. No: Poor Appetite, Poor Fluid Intake : No: Symptoms Reported Musculoskeletal: No: Symptoms Reported Integumentary: No: Symptoms Reported Neurological: No: Symptoms reported *Physical Exam - Vital Signs Last Vital Signs Temp Pulse Resp BP Pulse Ox 98.7 F 75 16 143/82 100 10/17/18 15:03 10/17/18 15:03 10/17/18 15:03 10/17/18 15:03 10/17/18 15:03 - Physical Exam General Appearance: Yes: Nourished, Appropriately Dressed. No: Apparent Distress HEENT: positive: Pharynx Normal. negative: Pale Conjunctivae Neck: positive: Supple Respiratory/Chest: positive: Lungs Clear, Normal Breath Sounds. negative: Respiratory Distress, Accessory Muscle Use Cardiovascular: positive: Regular Rhythm, Regular Rate. negative: Murmur Gastrointestinal/Abdominal: positive: Normal Bowel Sounds, Soft, Tenderness ( epigastric). negative: Distended, Guarding, Rebound Musculoskeletal: positive: Normal Inspection Extremity: positive: Normal Inspection Integumentary: positive: Normal Color, Warm, Moist Neurologic: positive: Motor Strength 5/5 (ambulatory) ED Treatment Course - LABORATORY CBC & Chemistry Diagram: 10/17/18 18:39 10/17/18 18:39 Medical Decision Making - Medical Decision Making 10/17/18 16:42 Chief complaint: Epigastric pain since this morning now associate nausea vomiting Exam. Patient epigastric tenderness no other acute findings. Vital signs stable. Plan. Labs, urine IV fluids antiemetics and protonix 10/17/18 18:58 Pt states feeling better. Patient ate bagged dinner. Patient's labs had to be resent since the urine spilled on specimens during transportation *DC/Admit/Observation/Transfer Diagnosis at time of Disposition: Gastritis - Discharge Dispostion Disposition: HOME Condition at time of disposition: Improved - Prescriptions Prescriptions: Pantoprazole Sodium [Protonix] 40 mg PO DAILY #20 tablet.dr - Referrals Referrals: Susan Cardona MD [Primary Care Provider] - - Patient Instructions Printed Discharge Instructions: Gastritis Additional Instructions: drink plenty of fluids including gatorade, coconut water, water start a BRAT ( bananas, rice apples toast) follow up with your doctor/ gastroenteritologist as soon as possible. return to the ER if symptoms worsen - Post Discharge Activity Forms/Work/School Notes: Back to Work
[2018-10-17 18:43] LABS: BASO % 0.3 % (0-2.0); EOS % 0.4 % (0-4.5); HEMATOCRIT 42.6 % (35.4-49); HEMOGLOBIN 14.1 GM/dL (11.7-16.9); LYMPH % 6.2 % (8-40); MCH 30.7 pg (25.7-33.7); MCHC 33.1 g/dl (32.0-35.9); MEAN CELL VOLUME 92.6 fl (80-96); MEAN PLT VOLUME 8.3 fl (7.5-11.1); MONO % 5.4 % (3.8-10.2); NEUT % 87.7 % (42.8-82.8); PLATELET COUNT 174 K/MM3 (134-434); RDW 14.2 % (11.9-15.9); WHITE BLOOD COUNT 8.1 K/mm3 (4.0-10.0)
[2018-10-17 19:13] LABS: ALBUMIN 3.8 g/dl (3.4-5.0); BILIRUBIN,TOTAL 0.6 mg/dL (0.2-1); CALCIUM 8.9 mg/dL (8.5-10.1); CREATININE 1.1 mg/dL (0.55-1.3); MAGNESIUM 2.2 mg/dL (1.8-2.4); POTASSIUM 4.4 mmol/L (3.5-5.1)
[2018-10-17 19:19] LABS: PH,URINE 5.5 (5.0-8.0); URINE APPEARANCE CLEAR; URINE BILIRUBIN NEGATIVE (NEGATIVE); URINE COLOR YELLOW; URINE GLUCOSE (UA) NEGATIVE (NEGATIVE); URINE KETONE NEGATIVE (NEGATIVE); URINE LEUK ESTERASE NEGATIVE (NEGATIVE); URINE NITRITE NEGATIVE (NEGATIVE); URINE PROTEIN NEGATIVE (NEGATIVE); URINE UROBILINOGEN 0.2 mg/dL (0.2-1.0)
--- NOTE | 2018-10-17 20:26 | PDOC ---
*Physical Exam - Vital Signs Last Vital Signs Temp Pulse Resp BP Pulse Ox 98.7 F 75 16 143/82 100 10/17/18 15:03 10/17/18 15:03 10/17/18 15:03 10/17/18 15:03 10/17/18 15:03 - Physical Exam General Appearance: Yes: Appropriately Dressed Respiratory/Chest: positive: Lungs Clear, Normal Breath Sounds Gastrointestinal/Abdominal: positive: Normal Bowel Sounds, Soft. negative: Tender (no abdominal tenderness) ED Treatment Course - LABORATORY CBC & Chemistry Diagram: 10/17/18 18:39 10/17/18 18:39 - ADDITIONAL ORDERS Additional order review: Laboratory Results 10/17/18 10/17/18 18:39 18:39 Sodium 140 Potassium 4.4 Chloride 108 H Carbon Dioxide 24 Anion Gap 8 BUN 14 Creatinine 1.1 Est GFR (CKD-EPI)AfAm 108.32 Est GFR (CKD-EPI)NonAf 93.46 Random Glucose 73 L Calcium 8.9 Magnesium 2.2 Total Bilirubin 0.6 AST 36 ALT 67 H Alkaline Phosphatase 46 Total Protein 7.0 Albumin 3.8 Lipase 85 Urine Color Yellow Urine Appearance Clear Urine pH 5.5 Ur Specific [place] 1.019 Urine Protein Negative Urine Glucose (UA) Negative Urine Ketones Negative Urine Blood Negative Urine Nitrite Negative Urine Bilirubin Negative Urine Urobilinogen 0.2 Ur Leukocyte Esterase Negative 10/17/18 18:39 RBC 4.60 MCV 92.6 MCHC 33.1 RDW 14.2 MPV 8.3 Neutrophils % 87.7 H D Lymphocytes % 6.2 L D Monocytes % 5.4 Eosinophils % 0.4 Basophils % 0.3 - Medications Given in the ED: ED Medications Discontinued Medications Generic Name Dose Route Start Last Admin Trade Name Freq PRN Reason Stop Dose Admin Pantoprazole Sodium 40 mg/ 100 mls @ 200 mls/hr 10/17/18 15:39 10/17/18 15:41 Sodium Chloride IVPB 10/17/18 16:08 200 mls/hr ONCE ONE Administration Sodium Chloride 1,000 mls @ 1,000 mls/hr 10/17/18 15:39 10/17/18 15:41 Normal Saline - IV 10/17/18 16:38 1,000 mls/hr ASDIR STA Administration Metoclopramide HCl 10 mg 10/17/18 15:39 10/17/18 15:41 Reglan Injection - IVPB 10/17/18 15:40 10 mg ONCE ONE Administration Morphine Sulfate 2 mg 10/17/18 15:40 10/17/18 15:41 Morphine Injection - IVPUSH 10/17/18 15:41 2 mg ONCE ONE Administration Medical Decision Making - Medical Decision Making 10/17/18 20:23 patient reports feeling better. 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 will d/c home with protonix *DC/Admit/Observation/Transfer Diagnosis at time of Disposition: Gastritis Qualifiers: Gastritis type: unspecified gastritis Chronicity: acute Gastritis bleeding: presence of bleeding unspecified Qualified Code(s): K29.00 - Acute gastritis without bleeding - Discharge Dispostion Disposition: HOME Condition at time of disposition: Improved - Prescriptions Prescriptions: Pantoprazole Sodium [Protonix] 40 mg PO DAILY #20 tablet.dr - Referrals Referrals: Susan Cardona MD [Primary Care Provider] - - Patient Instructions Printed Discharge Instructions: Gastritis Additional Instructions: drink plenty of fluids including gatorade, coconut water, water start a BRAT ( bananas, rice apples toast) follow up with your doctor/ gastroenteritologist as soon as possible. return to the ER if symptoms worsen - Post Discharge Activity Forms/Work/School Notes: Back to Work
== END 2018-10-17 20:59 | disposition home or self-care (01) ==
LOC: JER 15:03
PROC: 3E033GC Introduction of Other Therapeutic Substance into Peripheral Vein, Percutaneous Approach (ICD-10-PCS; principal; 2018-10-17)
PROC: 3E033NZ Introduction of Analgesics, Hypnotics, Sedatives into Peripheral Vein, Percutaneous Approach (ICD-10-PCS; 2018-10-17)
PROC: 3E0337Z Introduction of Electrolytic and Water Balance Substance into Peripheral Vein, Percutaneous Approach (ICD-10-PCS; 2018-10-17)
DX: K29.00 Acute gastritis without bleeding (principal)
CPT/HCPCS: 36415; 80053; 81003; 83690; 83735; 85025; 99283-25; J7030